=== PATIENT | male | born 1975 ===

== ENCOUNTER 2020-05-16 07:21 | Day surgery (SDC) | payer OTHER ==
[~2020-05-16 07:21] MED LIST: CARDIZEM30 MG PO
[2020-05-16] MEDS ORDERED: PERCOCET 5-3251 EACH PO (10:49)
[2020-05-16] MEDS ORDERED: COLACE100 MG PO (10:49)
[2020-05-16] MEDS ORDERED: FLAGYL500MG PO (13:11)
== END 2020-05-16 17:40 | disposition home or self-care (01) ==
LOC: CIR.AMB 07:21
PROVIDERS: ATTEND Surgery
DX: K60.1 Chronic anal fissure (principal); K62.4 Stenosis of anus and rectum; Z20.822 Contact with and (suspected) exposure to COVID-19